=== PATIENT | female | born 2000 | race Caucasian/White ===

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

== ENCOUNTER 2020-02-09 23:55 | Emergency (ER) | payer MEDICAID ==
[~2020-02-09] VITALS: Ht 165.1 cm; Wt 63.0 kg
--- NOTE | 2020-02-10 00:17 | NUR ---
Harish sup contacted for 1;1 food safety officer.
--- NOTE | 2020-02-10 00:20 | NUR ---
SITTER AT BEDSIDE FOR 1:1 OBSERVATION.
[2020-02-10 00:51] LABS: BASOPHILS # (AUTO) 0.04 x10^3/uL (0-0.3); BASOPHILS % (AUTO) 1 % (0-1); EOSINOPHILS # (AUTO) 0.03 x10^3/uL (0-0.8); EOSINOPHILS % (AUTO) 0 % (1-7); LYMPHOCYTES # (AUTO) 3.35 x10^3/uL (1-6.1); LYMPHOCYTES % (AUTO) 38 % (22-44); MD NO; MEAN CORPUSCULAR HEMOGLOBIN 29.5 pg (27.0-34.8); MEAN CORPUSCULAR HGB CONC 32.8 g/dL (32.4-35.8); MEAN PLATELET VOLUME 9.2 fL (7.4-10.4); MONOCYTES # (AUTO) 0.35 x10^3/uL (0-1.4); MONOCYTES % (AUTO) 4 % (2-9); NEUTROPHILS % (AUTO) 57 % (42-75); PLATELET COUNT 345 x10^3/uL (130-400); RED BLOOD COUNT 5.48 x10^6/uL (3.82-5.3); RED CELL DISTRIBUTION WIDTH 13.9 % (9.6-15.2)
[2020-02-10 00:56] LABS: ALANINE AMINOTRANSFERASE 14 U/L (12-78); ALBUMIN 4.4 g/dL (3.4-5.0); ANION GAP 15 mmol/L (5-15); CALCIUM 8.8 mg/dL (8.5-10.1); CHLORIDE 103 mmol/L (98-107); SALICYLATE LEVEL 2.1 mg/dL (2.8-20.0)
[2020-02-10 00:59] LABS: ALKALINE PHOSPHATASE 114 U/L (45-117); BILIRUBIN,TOTAL 0.3 mg/dL (0.2-1.0); CREATININE 0.81 mg/dL (0.55-1.02); TOTAL PROTEIN 8.4 g/dL (6.4-8.2)
--- NOTE | 2020-02-10 01:00 | NUR ---
PT BIB [employer] WITH MOTHER. PT WAS CUTTING HERSELF AND HER MOTHER WANTED TO TAKE HER TO THE HOSPITAL TO HAVE CUTS LOOKED AT. PT RESUFED TO COME, MOTHER CALLED [employer] AND PT PLACED ON A HOLD BY [employer] AND BROUGHT HERE. PT +ETOH TONIGHT. PT DENIES SI, STATES "I CUT MYSELF BECUASE I WANT THE PAIN TO GO AWAY" PT RECENTLY RELEASED FROM [facility]. PT STATES SHE WANTS TO LEAVE AND DOES NOT WANT TO BE HERE STATING "WHAT DO I HAVE TO SAY FOR YOU TO LET ME GO HOME" PT DENIES PAST SA ATTEMPTS BUT MOTHER STATES SHE HAS OVERDOSED IN THE PAST ON PERSCRIPTION MEDICATIONS A SA. PT HAS SIGNIFICANT SELF-INFLICTED LACERATIONS TO BOTH ARMS WELL THE RIGHT UPPER THIGH. WOUNDS CLEANED AND DRESSED. PT HAS A HX OF PSYCH HOSPITALIZATIONS AND ALSO TYPE 1 DM. PT TAKES INSULIN AT HOME BUT REFUSES TO TAKE PSYCH MEDS THAT HAVE BEEN PERSCRIBED TO HER. STATES SHE DRINKS ALMOST EVERY DAY AND ALSO STATES SHE HAS BEEN DOING A LOT OF COCAINE AND HEROIN LATELY.
--- NOTE | 2020-02-10 01:45 | NUR ---
PIV INITIATE AND IV FLUIDS PROVIDED.
[2020-02-10 01:55] LABS: HCG UR SG 1.034 (1.003-1.030); MICROSCOPIC NOT IND
[2020-02-10 01:59] LABS: CULTURE INDICATED? NO
[2020-02-10] MEDS ORDERED: INSULIN SINGLE DOSE, ER IVPush ONE (02:00)
[2020-02-10] MEDS ORDERED: SODIUM CHLORIDE 0.9% 1,000ML IVBOLUS ONE (02:00)
[2020-02-10] MEDS ORDERED: SODIUM CHLORIDE FLUSH 10ML SYR IVF ONE (02:00)
[2020-02-10] MEDS ORDERED: ONDANSETRON 2MG/ML, 2ML IVPush ONE (02:00)
[2020-02-10 02:08] LABS: AMPHETAMINE SCREEN, URINE Negative (Negative); BARBITURATE SCREEN, URINE Negative (Negative); BENZODIAZEPINE SCREEN, URINE Negative (Negative); CANNABINOID SCREEN, URINE Negative (Negative); COCAINE SCREEN, URINE Negative (Negative); METHADONE SCREEN, URINE Negative (Negative); OPIATE SCREEN, URINE Negative (Negative)
--- NOTE | 2020-02-10 02:30 | NUR ---
PT'S MOTHER'S NAME IS SUMMER. SHE HAS LEFT TO GO HOME AT THIS TIME AND STATES THAT SHE WILL BE BY TO VISIT PT IN THE MORNING. PT BELONGINGS SENT HOME WITH MOTHER.
--- NOTE | 2020-02-10 03:10 | NUR ---
PT RESTING ON GURNEY WITH EYES CLOSED, RESPIRATIONS EVEN AND UNLABORED. SITTER AT BEDSIDE FOR 1:1 OBSERVATION.
--- NOTE | 2020-02-10 05:17 | NUR ---
PT RESTING ON GURNEY WITH EYES CLOSED, RESPIRATIONS EVEN AND UNLABORED. SITTER AT BEDSIDE FOR 1:1 OBSERVATION.
--- NOTE | 2020-02-10 06:44 | NUR ---
Pt report received from Irina RN, pt care transferred at this time. pt resting in gurney, NAD, eyes closed, RESP WNL, P/W/D, call light within reach. Sitter at door. WCTM.
--- NOTE | 2020-02-10 07:00 | NUR ---
Late Entry: Pt laying in [place], eyes closed, lights dimmed for comfort, sitter in line of site. Pt NAD, RESP WNL, P/W/D. WCTM.
--- NOTE | 2020-02-10 08:00 | NUR ---
Late Entry: Pt laying in [place], eyes closed, lights dimmed for comfort, sitter in line of site. Pt NAD, RESP WNL, P/W/D. WCTM.
--- NOTE | 2020-02-10 09:11 | NUR ---
Pt laying in gurney, eyes closed, lights dimmed for comfort, sitter in line of site. Pt NAD, RESP WNL, P/W/D. WCTM.
--- NOTE | 2020-02-10 10:01 | NUR ---
pt given breakfast tray and water, NAD, RESP WNL, VSS, MAEx4, P/W/D. WCTM. Legal hold, waiting for placment.
--- NOTE | 2020-02-10 11:00 | NUR ---
Late Entry: pt resting in gurney, NAD, P/W/D, arm lacs redressed, mom at BS. RESP WNL, VSS, sitter within line of sight. Janet. MICHELLE.
--- NOTE | 2020-02-10 11:06 | NUR ---
JOVANY (MOM) - pt wisam'd updates to mother.
--- NOTE | 2020-02-10 11:39 | NUR ---
pt resting in gurney, given tissues for comfort, NAD, ABC intact, MAEx4, appears calm and relaxed, P/W/D, FCS no SOB noted. WCTM.
--- NOTE | 2020-02-10 12:00 | NUR ---
THROUGHPUT: U AWAITING PRIOR AUTH FOR PT ACCEPTANCE.
--- NOTE | 2020-02-10 12:34 | NUR ---
Pt resting in [place], watching tv, sitter in line of site. Pt NAD, RESP WNL, P/W/D, denies additional needs at this time. WCTM.
--- NOTE | 2020-02-10 13:47 | NUR ---
LENNIE RN: HALINA TIMBER FELLER AT BEDSIDE.
--- NOTE | 2020-02-10 14:40 | NUR ---
Late Entry: Pt resting in gurney, NAD, P/W/D, RESP WNL, FCS no SOB noted. WCTM.
--- NOTE | 2020-02-10 14:43 | NUR ---
MEAL TRAY ORDERED FOR PATIENT.
--- NOTE | 2020-02-10 15:02 | NUR ---
THROUGHPUT: PACKET FAXED TO [facility], [facility], [facility].
--- NOTE | 2020-02-10 15:54 | NUR ---
Pt resting in gurney, NAD, P/W/D, RESP WNL, FCS no SOB noted. WCTM. MERCEDES garcia at BS.
[2020-02-10 17:16] VITALS: BP 117/83
--- NOTE | 2020-02-10 17:18 | NUR ---
Patient given discharge instructions and they have confirmed that they understand the instructions. Patient ambulatory with steady gait. Friend driving pt home. pt states she will "check out [facility]". No additional questions at this time. NAD, P/W/D, ABC intact, RESP WNL, VSS.
== END 2020-02-10 17:19 | disposition home or self-care (01) ==
LOC: ED 02-10 00:16
DX: F32.9 Major depressive disorder, single episode, unspecified (principal); F10.229 Alcohol dependence with intoxication, unspecified; E10.9 Type 1 diabetes mellitus without complications; F17.290 Nicotine dependence, other tobacco product, uncomplicated; Y90.9 Presence of alcohol in blood, level not specified
CPT/HCPCS: 80053; 80307; 81003; 81025; 82962; 85025; 99284; J7030

== ENCOUNTER 2020-03-30 22:19 | Emergency (ER) | payer MEDICAID ==
[~2020-03-30] VITALS: Ht 165.1 cm; Wt 64.0 kg
[2020-03-30 22:22] VITALS: BP 133/89
--- NOTE | 2020-03-30 23:17 | NUR ---
pt refused crutches, has pair at home
== END 2020-03-30 23:41 | disposition home or self-care (01) ==
LOC: ED 23:05
DX: S93.401A Sprain of unspecified ligament of right ankle, initial encounter (principal); S93.601A Unspecified sprain of right foot, initial encounter; E11.9 Type 2 diabetes mellitus without complications; X50.0XXA Overexertion from strenuous movement or load, initial encounter; Y93.89 Activity, other specified; Y92.410 Unspecified street and highway as the place of occurrence of the external cause; Y99.8 Other external cause status
CPT/HCPCS: 99284

== ENCOUNTER 2020-07-16 12:02 | Emergency (ER) | payer MEDICAID ==
[~2020-07-16] VITALS: Ht 162.6 cm; Wt 67.5 kg
[2020-07-16 12:03] VITALS: BP 134/85
--- NOTE | 2020-07-16 12:06 | NUR ---
PARA EDUCATOR: EKG DOEN IN TRIAGE
[2020-07-16] MEDS ORDERED: DEXAMETHASONE 4 MG TABLET ONE (12:52)
[2020-07-16] MEDS ORDERED: HYDROcodone/APAP 7.5-325MG/15ML UDC ONE (12:52)
[2020-07-16] MEDS ORDERED: DEXAMETHASONE 4 MG TABLET PO ONE (13:00)
[2020-07-16] MEDS ORDERED: HYDROcodone/APAP 7.5-325MG/15ML UDC PO ONE (13:00)
== END 2020-07-16 13:39 | disposition home or self-care (01) ==
LOC: ED 13:15
DX: J40 Bronchitis, not specified as acute or chronic (principal); Z20.828 Contact with and (suspected) exposure to other viral communicable diseases; R07.89 Other chest pain; J02.0 Streptococcal pharyngitis; R00.0 Tachycardia, unspecified; R05 Cough; H92.09 Otalgia, unspecified ear; E11.9 Type 2 diabetes mellitus without complications
CPT/HCPCS: 36415; 71045; 87081; 87635; 87880; 93005; 99285

== ENCOUNTER 2020-08-26 09:42 | Emergency (ER) | payer MEDICAID ==
[~2020-08-26] VITALS: Ht 162.6 cm; Wt 67.9 kg
[2020-08-26 09:59] VITALS: BP 118/70
== END 2020-08-26 10:13 | disposition left against medical advice (07) ==
LOC: ED 10:07
DX: R10.9 Unspecified abdominal pain (principal); R11.0 Nausea; R19.7 Diarrhea, unspecified
CPT/HCPCS: 99281

== ENCOUNTER 2021-03-04 15:05 | Emergency (ER) | payer MEDICAID ==
[~2021-03-04] VITALS: Ht 165.1 cm; Wt 72.0 kg
[2021-03-04 16:16] LABS: ALBUMIN 3.8 g/dL (3.4-5.0); ANION GAP 4 mmol/L (5-15); CALCIUM 9.1 mg/dL (8.5-10.1); CHLORIDE 104 mmol/L (98-107)
[2021-03-04 16:27] LABS: BASOPHILS % (AUTO) 0 % (0-1); EOSINOPHILS % (AUTO) 1 % (1-7); LYMPHOCYTES % (AUTO) 31 % (22-44); MD NO; MEAN CORPUSCULAR HEMOGLOBIN 30.9 pg (27.0-34.8); MEAN CORPUSCULAR HGB CONC 33.8 g/dL (32.4-35.8); MEAN PLATELET VOLUME 7.9 fL (7.4-10.4); MONOCYTES % (AUTO) 8 % (2-9); NEUTROPHILS % (AUTO) 60 % (42-75); PLATELET COUNT 267 x10^3/uL (130-400); RED BLOOD COUNT 4.54 x10^6/uL (3.82-5.3); RED CELL DISTRIBUTION WIDTH 12.8 % (9.6-15.2)
[2021-03-04 17:39] LABS: HCG UR SG 1.011 (1.003-1.030)
[2021-03-04 17:40] LABS: MICROSCOPIC INDICATED
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
[2021-03-04] MEDS ORDERED: FOSFOMYCIN 3 GM PACKET PO ONE (18:00)
[2021-03-04] MEDS ORDERED: FOSFOMYCIN 3 GM PACKET ONE (18:04)
[2021-03-04 18:34] VITALS: BP 106/55
== END 2021-03-04 18:38 | disposition home or self-care (01) ==
LOC: ED 18:32
DX: N30.00 Acute cystitis without hematuria (principal); E11.9 Type 2 diabetes mellitus without complications; M08.00 Unspecified juvenile rheumatoid arthritis of unspecified site; F17.200 Nicotine dependence, unspecified, uncomplicated
CPT/HCPCS: 36415; 80048; 81001; 81025; 82040; 82962; 85025; 87086; 99283

== ENCOUNTER 2021-06-08 19:17 | Emergency (ER) | payer MEDICAID ==
[~2021-06-08] VITALS: Ht 165.1 cm; Wt 67.3 kg
[2021-06-08 19:54] LABS: PH, VENOUS 7.321 pH (7.320-7.420)
[2021-06-08 19:58] LABS: BASOPHILS % (AUTO) 0 % (0-1); EOSINOPHILS % (AUTO) 1 % (1-7); LYMPHOCYTES % (AUTO) 16 % (22-44); MEAN CORPUSCULAR HEMOGLOBIN 29.7 pg (27.0-34.8); MEAN CORPUSCULAR HGB CONC 32.9 g/dL (32.4-35.8); MONOCYTES % (AUTO) 6 % (2-9); NEUTROPHILS % (AUTO) 77 % (42-75); PLATELET COUNT 286 x10^3/uL (130-400); RED BLOOD COUNT 5.52 x10^6/uL (3.82-5.3); RED CELL DISTRIBUTION WIDTH 13.3 % (9.6-15.2)
[2021-06-08 20:09] LABS: ALBUMIN 4.2 g/dL (3.4-5.0); ANION GAP 5 mmol/L (5-15); CALCIUM 9.4 mg/dL (8.5-10.1); CHLORIDE 103 mmol/L (98-107)
[2021-06-08 20:11] LABS: MICROSCOPIC NOT IND
[2021-06-08 20:12] LABS: ALANINE AMINOTRANSFERASE 22 U/L (12-78); ALKALINE PHOSPHATASE 150 U/L (45-117); BILIRUBIN,TOTAL 0.7 mg/dL (0.2-1.0); CREATININE 0.77 mg/dL (0.55-1.02); TOTAL PROTEIN 8.2 g/dL (6.4-8.2)
[2021-06-08 21:07] LABS: ACETONE, SERUM Small (20mg/dL) (Negative)
[2021-06-08 21:20] VITALS: BP 143/95
[2021-06-08] MEDS ORDERED: POTASSIUM CHLORIDE 20 MEQ TAB.ER.PRT PO ONE (22:00)
[2021-06-08] MEDS ORDERED: ONDANSETRON ODT 4 MG PO ONE (22:00)
[2021-06-08] MEDS ORDERED: ONDANSETRON ODT 4 MG ONE (22:06)
[2021-06-08] MEDS ORDERED: POTASSIUM CHLORIDE 20 MEQ TAB.ER.PRT ONE (22:06)
--- NOTE | 2021-06-08 22:25 | NUR ---
PATIENT TOLERATED PO FLUIDS.
--- NOTE | 2021-06-08 22:29 | NUR ---
Patient given discharge instructions and they have confirmed that they understand the instructions. Patient ambulatory with steady gait. NAD, all questions answered appropriately, denies additional needs at this time. No personal belongings left in room after discharge.
== END 2021-06-08 22:31 | disposition home or self-care (01) ==
LOC: ED 19:27
DX: K29.20 Alcoholic gastritis without bleeding (principal); R11.2 Nausea with vomiting, unspecified; R10.13 Epigastric pain; E87.6 Hypokalemia; Z72.9 Problem related to lifestyle, unspecified; E11.9 Type 2 diabetes mellitus without complications; F17.200 Nicotine dependence, unspecified, uncomplicated
CPT/HCPCS: 36415; 80053; 81003; 82010; 82803; 82962; 85025; 99283; Q0162